=== PATIENT | male | born 1985 | race Caucasian/White ===

== ENCOUNTER 2017-01-15 10:31 | Emergency (ER) | payer OTHER ==
[~2017-01-15] VITALS: Ht 170.2 cm; Wt 126.5 kg
[2017-01-15 10:35] VITALS: Ht 170.2 cm; Wt 126.5 kg
[2017-01-15 10:56] LABS: HEMATOCRIT 46.5 % (42-52); MEAN CELL VOLUME 85.2 fL (80-100); MEAN CORPUSCULAR HEMOGLOBIN 28.8 pg (25-34); MEAN CORPUSCULAR HGB CONC 33.8 g/dl (32-36); MEAN PLATELET VOLUME 10.1 fL (7.4-10.4); PLATELET COUNT 340 K/uL (130-400); RED BLOOD COUNT 5.46 M/uL (4.7-6.1); WHITE BLOOD COUNT 8.72 K/uL (4.8-10.8)
[2017-01-15] MEDS ORDERED: SODIUM CHLORIDE 0.9% 1000ML 1,000 ML IV STA (11:01)
--- NOTE | 2017-01-15 11:03 | DIAGNOSTIC IMAGING REPORT ---
CHEST ONE VIEW PORTABLE CLINICAL HISTORY: Tachycardia. COMPARISON STUDY: No previous studies for comparison. FINDINGS: Lung volumes are normal. There is no pneumothorax or pleural effusion. No consolidation is identified. Cardiac size is normal. Mediastinal contours are normal. There is no evidence of pulmonary edema. IMPRESSION: No acute cardiopulmonary findings. Electronically signed by: Kem Holcomb M.D. 01/15/2017 11:02 AM Dictated Date/Time: 01/15/2017 11:01 AM
[2017-01-15] MEDS ORDERED: CALC500T72 PO (11:50)
[2017-01-15] MEDS ORDERED: OMEP20TA PO (11:50)
[2017-01-15] MEDS ORDERED: OMEG10007 PO (11:50)
[2017-01-15] MEDS ORDERED: RANI150T3 PO (11:50)
[2017-01-15 12:02] LABS: PARTIAL THROMBOPLASTIN RATIO 1.2; PROTHROMBIN TIME (PATIENT) 10.3 SECONDS (9.0-12.0)
[2017-01-15 12:14] LABS: URINE APPEARANCE CLEAR (CLEAR); URINE BILIRUBIN NEG (NEG); URINE COLOR YELLOW; URINE NITRITE NEG (NEG); URINE SPECIFIC GRAVITY 1.023 (1.000-1.030); UROBILINOGEN NEG (NEG); ZZUR CULT IF INDIC CLEAN CATCH NO
[2017-01-15 12:18] LABS: MANUAL MICROSCOPIC REQUIRED? NO; REVIEW REQ? NO
[2017-01-15 12:32] LABS: ALKALINE PHOSPHATASE 59 U/L (45-117); ALT/SGPT 106 U/L (12-78); BLOOD UREA NITROGEN 14 mg/dl (7-18); BUN/CREATININE RATIO 12.5 (10-20); CALCIUM 8.4 mg/dl (8.5-10.1); CARBON DIOXIDE 23 mmol/L (21-32); CHLORIDE 110 mmol/L (98-107); GLUCOSE 106 mg/dl (70-99); SODIUM 143 mmol/L (136-145)
[2017-01-15 13:17] LABS: POTASSIUM 4.8 mmol/L (3.5-5.1)
[2017-01-15 13:26] LABS: AST/SGOT 31 U/L (15-37)
--- NOTE | 2017-01-15 14:24 | EMERGENCY ROOM VISIT NOTE ---
History First contact with patient: 10:49 Chief Complaint: DIZZY Stated Complaint: DIZZY, FAINT, RACING PULSE Nursing Triage Summary: pt was at work today and felt dizzy and like his heart was going fast. pt states he has had this previously and his dr did a EKG and he was told that it was fine. no numbness no tingling History of Present Illness The patient is a 31 year old male who presents to the Emergency Room with complaints of dizziness and palpitations that started earlier today. 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 He states he felt flushed, felt very dizzy like he might pass out, and also felt some slight chest tightness/pressure and like his heart was racing. Patient states he has had palpitation symptoms ongoing for about 1 year, and has had 2 similar episodes of dizziness prior to this one. His symptoms have never been exertional in nature. He denies any syncope, shortness of breath, cough, nausea /vomiting, fever/chills, headaches, vision changes, recent illness, urinary symptoms. Patient does question whether his symptoms could be related to anxiety, but denies any history of this diagnosis. He denies any family history of coronary artery disease, he has no diagnosis of hypertension or hyperlipidemia, he is a current every day heavy smoker, he is obese, and he uses CPAP for sleep apnea at night. Patient does also report a history of Graves' disease, states he used to be on medication for his thyroid but then " it got better so he stopped taking the medicine." Review of Systems GENERAL: Denies fevers, chills, malaise, fatigue, unintentional weight changes. HEENT: + Dizziness. Denies visual problems, hearing loss, tinnitus. Denies difficulty swallowing or oral lesions. PULMONARY: Denies cough, shortness of breath, sputum production or hemoptysis. CARDIOVASCULAR: + Palpitations, chest pressure. Denies dyspnea on exertion, orthopnea or peripheral edema. Denies syncope. GASTROINTESTINAL: Denies diarrhea, constipation, nausea, vomiting, or abdominal pain. GENITOURINARY: Denies dysuria, frequency, urgency or nocturia. NEUROLOGIC: Denies history of epilepsy, CVA, TIA or chronic headaches. MUSCULOSKELETAL: Denies history of joint tenderness/swelling. SKIN: Denies rashes or lesions. PSYCHIATRIC: Denies history of depression or mental illness. ENDOCRINE: Denies history of diabetes, thyroid disorders. Social History Smoking Status: Current Every Day Smoker Current/Historical Medications Scheduled Calcium Ascorbate (Vitamin C), 1 TAB PO DAILY Fish Oil ([place]-3), 1 CAP PO DAILY Omeprazole (Omeprazole), 1 TAB PO DAILY Ranitidine Hcl (Zantac), 150 MG PO DAILY Allergies Coded Allergies: No Known Allergies (Unverified , 01/15/17) Physical Exam Vital Signs Date Time Temp Pulse Resp B/P (MAP) Pulse Ox O2 Delivery O2 Flow Rate FiO2 01/15/17 14:32 36.8 72 18 150/90 96 01/15/17 13:52 77 01/15/17 12:03 88 18 147/89 97 01/15/17 10:50 Room Air 01/15/17 10:50 98 01/15/17 10:50 105 01/15/17 10:35 37.0 121 20 185/113 97 Room Air Physical Exam CONSTITUTIONAL: No acute distress. Well appearing and well nourished. Nontoxic appearing and well-hydrated. Alert and oriented X 4 with normal affect. HEENT: Normocephalic, atraumatic. Pupils equal, round and reactive to light, EOMI. TMs normal. Pharynx normal. Moist mucous membranes. NECK: Supple, full active range of motion without discomfort. RESPIRATORY: Clear to auscultation bilaterally with no wheezing, crackles, rhonchi or stridor. Equal expansion bilaterally. CARDIOVASCULAR: Regular rate and rhythm with no murmurs, rubs or gallops. Normal peripheral perfusion +2 pulses in all 4 extremities. No edema. GASTROINTESTINAL: Soft, nontender, nondistended. Bowel sounds present in all quadrants. MUSCULOSKELETAL: Full range of motion of all joints without discomfort. INTEGUMENTARY: No rash or other significant dermatologic conditions noted. NEUROLOGIC: Cranial nerves II-XII grossly intact. No focal neurologic deficits noted. Normal strength, normal sensation, normal coordination and balance with negative Romberg, normal gait. Medical Decision & Procedures ER Provider Diagnostic Interpretation: CHEST ONE VIEW PORTABLE CLINICAL HISTORY: Tachycardia. COMPARISON STUDY: No previous studies for comparison. FINDINGS: Lung volumes are normal. There is no pneumothorax or pleural effusion. No consolidation is identified. Cardiac size is normal. Mediastinal contours are normal. There is no evidence of pulmonary edema. IMPRESSION: No acute cardiopulmonary findings. Laboratory Results 01/15/17 10:45 01/15/17 11:40 01/15/17 12:40 Test 01/15/17 10:45 01/15/17 11:40 01/15/17 12:00 01/15/17 12:33 Red Blood Count 5.46 M/uL (4.7-6.1) Mean Corpuscular Volume 85.2 fL (80-100) Mean Corpuscular Hemoglobin 28.8 pg (25-34) Mean Corpuscular Hemoglobin Concent 33.8 g/dl (32-36) RDW Standard Deviation 41.5 fL (36.4-46.3) RDW Coefficient of Variation 13.4 % (11.5-14.5) Mean Platelet Volume 10.1 fL (7.4-10.4) Troponin I < 0.015 ng/ml (0-0.045) Thyroid Stimulating Hormone (TSH) 1.360 uIu/ml (0.300-4.500) Prothrombin Time 10.3 SECONDS (9.0-12.0) Prothromb Time International Ratio 1.0 (0.9-1.1) Activated Partial Thromboplast Time 31.1 SECONDS (21.0-31.0) Partial Thromboplastin Ratio 1.2 Anion Gap 10.0 mmol/L (3-11) Est Creatinine Clear Calc Drug Dose 122.0 ml/min Estimated GFR () 101.7 Estimated GFR (Non- 87.7 BUN/Creatinine Ratio 12.5 (10-20) Calcium Level 8.4 mg/dl (8.5-10.1) Total Bilirubin 0.3 mg/dl (0.2-1) Alanine Aminotransferase (ALT/SGPT) 106 U/L (12-78) Alkaline Phosphatase 59 U/L (45-117) Total Creatine Kinase U/L (39-308) Total Protein 7.7 gm/dl (6.4-8.2) Albumin 3.8 gm/dl (3.4-5.0) Globulin 3.9 gm/dl (2.5-4.0) Albumin/Globulin Ratio 1.0 (0.9-2) Urine Color YELLOW Urine Appearance CLEAR (CLEAR) Urine pH 5.0 (4.5-7.5) Urine Specific [place] 1.023 (1.000-1.030) Urine Protein NEG (NEG) Urine Glucose (UA) NEG (NEG) Urine Ketones NEG (NEG) Urine Occult Blood NEG (NEG) Urine Nitrite NEG (NEG) Urine Bilirubin NEG (NEG) Urine Urobilinogen NEG (NEG) Urine Leukocyte Esterase NEG (NEG) Creatine Kinase MB Ratio (0-3.0) Test 01/15/17 12:40 Aspartate Amino Transf (AST/SGOT) 31 U/L (15-37) Creatine Kinase MB 1.0 ng/ml (0.5-3.6) Medications Administered Medications (Trade) Dose Ordered Sig/Rashawn Route Start Time Stop Time Status Last Admin Dose Admin Sodium Chloride 1,000 ml @ 999 mls/hr Q1H1M STAT IV 01/15/17 11:01 01/15/17 12:01 DC 01/15/17 11:14 999 MLS/HR ECG Indication: palpitations, other (dizziness) Rate (beats per minute): 86 Rhythm: normal sinus Findings: no acute ischemic change, no ectopy Comparison ECG Date: no prior available Medical Decision CC: Patient presenting with complaint of dizziness and palpitations Interpretation of Labs: No leukocytosis, no anemia, no significant electrolyte abnormalities, normal renal function, normal liver enzymes, negative troponin, normal thyroid function. Differential Diagnosis: Includes, but not limited to dehydration, orthostatic hypotension, vasovagal, presyncope, dysrhythmia, ACS, electrolyte abnormality, anemia, thyroid dysfunction. Medication Reconciliation: I attest that I have personally reviewed the patient' s current medication list. Vital signs review: I reviewed the patient's vital signs and interpret them as follows: T: Afebrile; BP: Hypertensive; HR: Within normal limits; RR: Within normal limits; Pulse Ox: Within normal limits on room air. Blood pressure screening: The patient was found to have an elevated blood pressure and was referred to their primary doctor for recheck and further treatment. Summary: Patient was evaluated at bedside, history of physical exam performed. Patient is alert and oriented, in no acute distress and well-appearing. Heart and lung exam are unremarkable. EKG evaluated at bedside and is noted to be normal sinus rhythm with no ischemic changes. Neuro exam is normal with no focal deficits. Orders were placed in triage per nursing protocols for chest pain. Additional orders for IV fluids, TSH also ordered. Patient discussed with Dr. Webber, who agrees with my assessment and plan. Chest x-ray reviewed, no acute abnormalities. Labs reviewed, unremarkable as discussed above. Patient reassessed after IV fluids, he has not had any dizziness during his ED stay. He is also noted to ambulate without difficulty or dizziness. I discussed with the patient the importance of following with his PCP, and recommended that he discuss Holter monitor placement with his PCP for continued evaluation of his palpitations and dizziness. Patient verbalized understanding of all discharge instructions and plan for follow-up, as well as return criteria should his symptoms worsen in any way. Patient was discharged home in stable condition and ambulatory. Impression Primary Impression: Dizziness Additional Impression: Palpitations Departure Information Dispostion Home / Self-Care Condition GOOD Referrals Nolan MACIAS M.D. (PCP) Patient Instructions ED Near Syncope Unkn, Holter Monitor, [facility] Additional Instructions You have been treated in the Emergency Department your dizziness. Laboratory results and imaging studies have ruled out any emergent causes for your abdominal pain which would warrant admission or surgery. Drink plenty of water and stay well hydrated. As with any trip to the Emergency Department, you should follow-up with your Primary Care Provider from today's visit. You should also discuss with your PCP about getting set up with a Holter monitor for further evaluation of your dizziness and palpitations. Please return to the ER for any worsening symptoms, including chest pain, shortness of breath, persistent dizziness or passing out, persistent nausea or vomiting, severe headache or vision changes, fevers/chills, or any other concerns. Problem Qualifiers
[2017-01-15 14:32] VITALS: BP 150/90; PULSE 72; TEMP 36.8; O2SAT 96
== END 2017-01-15 14:34 | disposition home or self-care (01) ==
LOC: C.EDB 10:33 → C.EDC 14:34
DX: R42 Dizziness and giddiness (principal); R00.2 Palpitations; F17.200 Nicotine dependence, unspecified, uncomplicated; Z79.899 Other long term (current) drug therapy